=== PATIENT | female | born 1960 | race Two or more races ===

== ENCOUNTER 2019-11-11 12:57 | Emergency (ER) | payer SELFPAY ==
[~2019-11-11] VITALS: Ht 167.6 cm; Wt 95.0 kg
--- NOTE | 2019-11-11 13:54 | PHYS DOC ---
Past Medical History Past Medical History: No Pertinent History (KYLE LOZANO APRN) Past Surgical History: Hysterectomy (KYLE LOZANO APRN) Smoking Status: Never Smoker Alcohol Use: None Drug Use: None (KYLE LOZANO APRN) Adult General Chief Complaint Chief Complaint: COUGH HPI HPI Patient is a 59 year old female who presents with fever, cough, sore throat this been ongoing since past Saturday. The patient presents to the ER wanting a work note. He states that she wants to return to work. She is unsure how high her fevers been. She denies shortness of breath. She denies any nausea, vomiting, diarrhea. She denies any loss of smell or taste. Complete ROS were reviewed and found to be within normal limits, except as documented in the HPI (KYLE LOZANO APRN) Allergies Allergies Allergies Coded Allergies Type Severity Reaction Last Updated Verified No Known Drug Allergies 06/28/14 No (PAYTON GOLDEN DO) Physical Exam Physical Exam Constitutional: Well developed, well nourished, no acute distress, non-toxic appearance. [] HENT: Normocephalic, atraumatic Cardiovascular:Deferred due to infection risk. Lungs & Thorax: Deferred due to infection risk. Neurologic: Alert and oriented X 3, normal motor function, normal sensory function, no focal deficits noted. [] Psychologic: Affect normal, judgement normal, mood normal. [] (KYLE LOZANO APRN) Current Patient Data Vital Signs Vital Signs Date Time Temp Pulse Resp B/P (MAP) Pulse Ox O2 Delivery O2 Flow Rate FiO2 11/11/19 13:56 98.0 70 18 221/103 (142) 97 Room Air 98.0 (PAYTON GOLDEN DO) EKG EKG [] (KYLE LOZANO APRN) Radiology/Procedures Radiology/Procedures [][facility] [address] [place], [place] [id number] IMAGING REPORT Signed PATIENT: MIGUE CONTRERASUNT: [id number] : 1960 LOCATION: ER AGE: 59 SEX: F EXAM STATUS: REG ER ORD. PHYSICIAN: KYLE LOZANO APRN REASON: cough, fever PROCEDURE: PORTABLE CHEST 1V Examination: PORTABLE CHEST 1V History: Cough, fever Comparison/Correlation: 06/28/2014 2 view chest x-ray exam Findings: Portable upright frontal view chest was obtained. Heart size and pulmonary vasculature are normal. No infiltrate or pleural effusion. No pneumothorax. Bony structures are unremarkable. Impression: No active disease. Electronically signed by: Jp Balderrama MD (11/11/2019 2:10 PM) [id number] DICTATED and SIGNED BY: JP BALDERRAMA MD DATE: 11/11/19 1410 (KYLE LOZANO APRN) Course & Med Decision Making Course & Med Decision Making Pertinent Labs and Imaging studies reviewed. (See chart for details) We will get a chest x-ray on the patient to make sure that she does not have bilateral pneumonia. If this is unremarkable, will discharge the patient home to be under isolation for 14 days. Discussed with the patient is important she self isolate due to risk of coronavirus. (KYLE LOZANO APRN) Dragon Disclaimer Dragon Disclaimer This electronic medical record was generated, in whole or in part, using a voice recognition dictation system. (KYLE LOZANO APRN) Attending Signature I have participated in the care of this patient and I have reviewed and agree with all pertinent clinical information above including history, exam, and recommendations. (PAYTON GOLDEN DO) Departure Departure Impression: Primary Impression: Suspected 2019 novel coronavirus infection Disposition: HOME, SELF-CARE Condition: STABLE Referrals: NO PCP (PCP) Patient Instructions: Viral Syndrome Additional Instructions: Thank you for visiting [facility]. We appreciate you trusting us with your care. If any additional problems come up don't hesitate to return to visit us. Please follow up with your primary care provider so they can plan additional care if needed and know about the problem that you had. If symptoms worsen come back to the Emergency Department. Any concerning symptoms that start such as chest pain, shortness of air, weakness or numbness on one side of the body, running high fevers or any other concerning symptoms return to the ER. You have a viral syndrome which may include symptoms like muscle aches, fevers, chills, runny nose, cough, sneezing, sore throat, vomiting, or diarrhea. One of the potential viruses that you may have is SARS-CoV-2, the virus that causes COVID-19, also known as the Coronavirus. You are just as likely to have a different viral infection such as the common cold, flu, etc. Most patients with the Coronavirus have mild symptoms and recover on their own. Resting, staying hydrated, and sleep from known cases can be helpful. As of todays visit, you are well enough to go home and treat your symptoms with oral fluids and over the counter medications. Coronavirus testing is not performed on most people with mild symptoms who are being discharged from the emergency department. If Coronavirus testing was performed the results will not be available for possibly up to 2-3 days. If your result is positive you will be contacted. Please follow the following precautions at home: 1) Stay home except to get medical care. 2) As advised by the CDC we recommend you stay in your home and minimize contact with other people. We do not want you to spread the infection. 3) Those who are older or have significant medical issues may have more severe symptoms from this infection. We recommend self-isolation,FOR AT LEAST 7 DAYS after your 1st day of symptoms. AFTER you feel better please wait AT LEAST ANOTHER WEEK before returning to regular activities and being around other people! 4) IF you become sicker and have difficulty breathing, chest pain, unable to eat/drink, severe vomiting, diarrhea, or weakness you may need to return to the Emergency Department. 5) You should restrict activities outside your home, except for getting medical care. DO NOT go to work, school, or public areas. Avoid using public transportation, ride sharing, or taxis. 6) Separate yourself from other people in your home. You should use a separate bathroom if possible. 7) Avoid sharing personal household items such as dishes, cups, eating utensils, towels, etc. 8) Clean all high touch surfaces every day (door knobs, counter tops, etc). Use a household cleaning spray or wipe per label instructions. 9) Clean your hands often. Wash your hands with soap and water for at least 20 seconds. 10) Cover your mouth and nose with a tissue when you cough or sneeze. 11) Throw used tissues in a trash can and immediately wash your hands. For additional resources please visit the CDC website or the [facility] ([phone]). KYLE LOZANO APRN Nov 11, 2019 13:54 PAYTON GOLDEN DO Nov 11, 2019 14:38
[2019-11-11 13:56] VITALS: BP 221/103
--- NOTE | 2019-11-11 14:13 | RAD ---
Examination: PORTABLE CHEST 1V History: Cough, fever Comparison/Correlation: 06/28/2014 2 view chest x-ray exam Findings: Portable upright frontal view chest was obtained. Heart size and pulmonary vasculature are normal. No infiltrate or pleural effusion. No pneumothorax. Bony structures are unremarkable. Impression: No active disease. Electronically signed by: Jp Crespo MD (11/11/2019 2:10 PM) [id number]
== END 2019-11-11 15:09 | disposition home or self-care (01) ==
LOC: EDBD 12:57 → ER 12:57
DX: Z20.828 Contact with and (suspected) exposure to other viral communicable diseases (principal); R05 Cough; J02.9 Acute pharyngitis, unspecified; R50.9 Fever, unspecified
CPT/HCPCS: 71045; 99283